=== PATIENT | male | born 1995 | race Caucasian/White ===

== ENCOUNTER 2017-07-13 09:15 | Outpatient (CLI) | payer OTHER ==
[2017-07-13 09:44] LABS: ALBUMIN/GLOBULIN RATIO 1.5 (1.0-2.2); BILIRUBIN,TOTAL 0.7 mg/dL (0.2-1.0); CALCIUM 9.1 mg/dL (8.5-10.3); POTASSIUM 3.8 mmol/L (3.5-5.0); TOTAL PROTEIN 7.4 g/dL (6.7-8.2)
== END 2017-07-13 09:16 | disposition home or self-care (01) ==
LOC: LAB 09:15
PROVIDERS: ATTEND Surgery
DX: K80.50 Calculus of bile duct without cholangitis or cholecystitis without obstruction (principal)
CPT/HCPCS: 36415; 80053

== ENCOUNTER 2017-07-17 08:22 | Day surgery (SDC) | payer OTHER ==
[~2017-07-17 08:22] MED LIST: ceFAZolin 2 GM/50 ML 50 ML IV ONE
[2017-07-17] MEDS ORDERED: LACTATED RINGERS 1,000 ML IV ONE ×2 (08:48→11:30)
[2017-07-17] MEDS ORDERED: BUPIVACAINE 0.5%-EPI 1:200000 PF 30 ML VIAL SUBQ ONE ×2 (10:41)
[2017-07-17] MEDS ORDERED: KETOROLAC 30 MG/ML VIAL IVP ONE (11:00)
[2017-07-17] MEDS ORDERED: ONDANSETRON 4 MG/2 ML VIAL IVP ONE (11:00)
[2017-07-17] MEDS ORDERED: ROCURONIUM 50 MG/5 ML VIAL IVP ONE (11:00)
[2017-07-17] MEDS ORDERED: MIDAZOLAM 2 MG/2 ML VIAL IVP ONE (11:00)
[2017-07-17] MEDS ORDERED: fentaNYL 100 MCG/2 ML VIAL IVP ONE (11:00)
[2017-07-17] MEDS ORDERED: ceFAZolin 1 GM VIAL IV ONE (11:00)
[2017-07-17] MEDS ORDERED: PROPOFOL 200 MG/20 ML VIAL IVP ONE (11:00)
[2017-07-17] MEDS ORDERED: LIDOCAINE-MPF 2% 5 ML VIAL IM ONE (11:00)
[2017-07-17] MEDS ORDERED: NEOSTIGMINE 1 MG/1 ML 10 ML MDV IVP ONE (11:00)
[2017-07-17] MEDS ORDERED: DEXAMETHASONE 4 MG/ML VIAL IVP ONE (11:00)
[2017-07-17] MEDS ORDERED: GLYCOPYRROLATE 1 MG/5 ML VIAL IVP ONE (11:00)
[2017-07-17] MEDS ORDERED: fentaNYL 100 MCG/2 ML VIAL ONE (12:01)
[2017-07-17] MEDS ORDERED: oxyCOD/ACETAMIN 5 MG/325 MG TABLET PO ONE ×2 (12:41→13:39)
--- NOTE | 2017-07-17 12:51 | OPERATIVE REPORT ---
DATE OF SURGERY: 07/17/2017 00:00:00 PREOPERATIVE DIAGNOSIS: Biliary colic. POSTOPERATIVE DIAGNOSIS: Chronic cholecystitis. PROCEDURE: Laparoscopic cholecystectomy. INDICATION FOR PROCEDURE: This is a 22-year-old male who presented to my office with recurrent complaints of biliary colic. FINDINGS: After obtaining informed consent from the patient, he was brought into the operating room and positioned on the operating table in a supine position, taking note of pressure points. He was intubated by Anesthesia. He was administered 3 grams of Ancef. He was prepped and draped in the usual sterile fashion, and a time-out was taken according to protocol. An infraumbilical semicircular 1 cm incision was created and deepened down to the umbilical stalk. This was grasped and elevated, and the Veress needle inserted. The abdominal cavity was then insufflated. A 5 mm incision was created in the epigastric region to the right of the midline and using the Optiview trocar, the abdominal cavity was entered. The Veress needle was removed and a 12 mm port was placed. Two additional 5 mm ports were placed along the right lateral abdominal wall. The gallbladder was inspected and was noted to be distended, and I was unable to grasp it. For this reason, the drainage needle was inserted and the gallbladder drained. The fluid removed from the gallbladder was noted to be completely clear. Approximately 80 mL of clear fluid was evacuated. The gallbladder was then grasped and retracted over the dome of the liver. The base of the gallbladder was visualized. The lateral attachments were opened working my way anteriorly toward the cystic duct. I then worked my way medially exposing Calot node and opening up the medial attachments. The peritoneal attachments were then swept down exposing the cystic duct. This was circumferentially freed from surrounding tissue. The cystic artery was then identified and similarly cleared from surrounding fatty tissue. The base of the gallbladder was dissected from the gallbladder fossa and the critical view obtained. The cystic duct was clipped with 2 clips placed proximally, 1 distally , and divided. The artery was divided in a similar manner with 2 clips placed proximally, 1 distally, and divided. The gallbladder was then resected off of the gallbladder fossa using electrocautery. There was no spillage of stones or bile during this process. The edge of the gallbladder attachments to the liver did have some small amount of bleeding, which was controlled with electrocautery. The gallbladder was placed in a specimen bag and was removed through the umbilical port. The patient was then flattened and the umbilical port site was closed using the Rasheed-Nini device. The abdominal cavity was allowed to desufflate and the suture tied down. Upon finger inspection of the fascial defect, a persistent small defect in the anterior portion of the umbilical incision was noted. A second [id number] 0 Vicryl suture was placed at this location and the umbilical defect was noted to be completely closed. 30 mL of local anesthetic was infiltrated into the incisions. All skin incisions were closed with 4-0 Monocryl and Dermabond was applied. The patient was extubated and taken to recovery room in stable condition. COMPLICATIONS: None. ESTIMATED BLOOD LOSS: 5 mL. SPECIMEN: Gallbladder. JOB #: [id number] [id number] JOB #:[id number]
[2017-07-17 13:44] VITALS: BP 142/68
== END 2017-07-17 08:23 | disposition home or self-care (01) ==
LOC: SDS 08:22
PROVIDERS: ATTEND Surgery
PROC: 0FT44ZZ Resection of Gallbladder, Percutaneous Endoscopic Approach (ICD-10-PCS; principal; 2017-07-17 09:30)
DX: K81.1 Chronic cholecystitis (principal)
CPT/HCPCS: 47562; A9270; J0690; J7120